=== PATIENT | female | born 1955 | race Caucasian/White ===

== ENCOUNTER 2017-10-17 08:15 | Outpatient (CLI) | payer BC ==
--- NOTE | 2017-10-17 11:35 | CT ---
CTA CHEST: HISTORY: Coronary mapping. Atrial flutter. TECHNIQUE: Contrast enhanced CT chest performed. FINDINGS: No evidence of definite lung parenchymal abnormalities seen. The left main, as well as the coronary arteries, is unremarkable. A prominent coronary sinus is seen. No other significant abnormalities s een. No evidence of pleural or pericardial effusion seen. POS: [facility]
== END 2017-10-17 08:16 | disposition home or self-care (01) ==
LOC: CT 08:15
PROVIDERS: ATTEND Internal Medicine Cardiovascular Disease
DX: I48.91 Unspecified atrial fibrillation (principal)
CPT/HCPCS: 71275; 82565

== ENCOUNTER 2017-11-05 08:35 | Outpatient (CLI) | payer BC ==
[2017-11-05 10:29] LABS: #Eosinphils 0.2 thou/uL (0.0-0.7); #Lymphocytes 2.2 thou/uL (1.20-3.40); #Monocytes 0.4 thou/uL (0.11-0.59); #Neutrophils 3.4 thou/uL (1.40-6.50); %Basophils 0.7 % (0.0-1.0); %Eosinophils 2.8 % (0.0-10.0); %Lymphocytes 34.7 % (21.0-51.0); %Neutrophils 54.8 % (42.0-75.0); Hemoglobin 13.9 g/dL (12.0-16.0); Mean Corpuscular HGB CONC 34.2 g/dL (32.0-36.0); Mean Corpuscular Volume 93.6 fl (81.0-99.0); Mean Platelet Volume 7.6 fL (7.4-10.4); Platelet Count 217 thou/uL (130-400); RBC Distribution Width 11.4 % (11.5-14.5); Red Blood Cell (RBC) Count 4.34 mill/uL (4.20-5.40); White Blood Cell (WBC) Count 6.3 thou/uL (4.8-10.8)
[2017-11-05 10:41] LABS: INR-International Normal Ratio 2.3; PTT 47.7 SEC (22.9-36.1); Prothrombin Time 26.1 SEC (12.0-14.7)
[2017-11-05 11:14] LABS: Anion Gap 7 mmol/L (10-20); BUN (Urea Nitrogen) 17 mg/dL (9.8-20.1); Calc. Creatinine Clearance 0 mL/min (70-130); Calcium 10.2 mg/dL (7.8-10.44); Carbon Dioxide 33 mmol/L (23-31); Chloride 105 mmol/L (98-107); Estimated GFR-MDRD 56; Glucose 117 mg/dL (80-115); Sodium 141 mmol/L (136-145)
--- NOTE | 2017-11-06 08:02 | EKG ---
Test Reason : Blood Pressure : / mmHG Vent. Rate : 052 BPM Atrial Rate : 357 BPM P-R Int : 000 ms QRS Dur : 090 ms QT Int : 396 ms P-R-T Axes : 000 083 077 degrees QTc Int : 368 ms Atrial fibrillation with slow ventricular response Low voltage QRS Abnormal ECG When compared with ECG of 15-JUL-2012 11:33, Atrial fibrillation has replaced Sinus rhythm QT has shortened Confirmed by JIAN WOOD ([id number]) on 11/06/2017 8:01:57 AM Referred By: HEATHER Confirmed By:JIAN WOOD
== END 2017-11-05 08:36 | disposition home or self-care (01) ==
LOC: LABBT 08:35
PROVIDERS: ATTEND Internal Medicine Cardiovascular Disease
DX: Z01.818 Encounter for other preprocedural examination (principal); I48.91 Unspecified atrial fibrillation; R94.31 Abnormal electrocardiogram [ECG] [EKG]
CPT/HCPCS: 80048; 85025; 85610; 85730; 93005; 93010

== ENCOUNTER 2017-11-14 06:01 | Observation (INO) | payer BC ==
[2017-11-05 09:00] VITALS: BMI 24.9
[2017-11-14] MEDS ORDERED: Lidocaine 1% (PF) 30 ML VIAL ONE (06:56)
[2017-11-14] MEDS ORDERED: Heparin 10,000 UNITS/1 ML VIAL ONE (07:03)
[2017-11-14] MEDS ORDERED: Fentanyl 100 MCG/2 ML VIAL ONE ×2 (07:50)
[2017-11-14] MEDS ORDERED: Isoproterenol 0.2 MG/1 ML AMP ONE ×2 (10:01)
[2017-11-14] MEDS ORDERED: Protamine Sulfate 50 MG/5 ML VIAL ONE (10:21)
[2017-11-14] MEDS ORDERED: Ondansetron HCl/PF 4 MG/2 ML Vial IVP PRN ×3 (11:36→12:37)
[2017-11-14] MEDS ORDERED: Non-Formulary Medication 1 EACH PO PRN (11:36)
[2017-11-14] MEDS ORDERED: Promethazine HCl 25 MG/ML VIAL IM/IV PRN ×2 (11:36)
[2017-11-14] MEDS ORDERED: Nitroglycerin 0.4 MG TAB (25 Tab Bottle) SL PRN (12:37)
[2017-11-14] MEDS ORDERED: Acetaminophen 325 MG TAB PO PRN (12:37)
[2017-11-14] MEDS ORDERED: Mag-Al 1200 mg/1200 mg/30 ML UDCUP PO PRN (12:37)
[2017-11-14] MEDS ORDERED: Bisacodyl 5 MG TAB PO PRN (12:37)
[2017-11-14] MEDS ORDERED: traMADol HCl 50 MG TAB PO PRN (12:37)
[2017-11-14] MEDS ORDERED: Bisacodyl 10 MG SUPP PR PRN (12:37)
[2017-11-14] MEDS ORDERED: Silver Sulfadiazine 1% Cream 50 GM JAR TOP PRN (12:37)
[2017-11-14] MEDS ORDERED: Temazepam 15 MG CAP PO PRN (12:37)
[2017-11-14] MEDS ORDERED: diphenhydrAMINE 25 MG CAP PO PRN (12:37)
--- NOTE | 2017-11-14 13:06 | OP ---
DATE OF PROCEDURE: 11/14/2017 PROCEDURE: 1. Comprehensive EP testing with 3D mapping ablation of atrial fibrillation. 2. Transseptal catheterization x2. 3. Intracardiac echocardiography. 4. Vascade collagen closure device placed in the venous access. CLINICAL INDICATION: 1. Atypical flutter and atrial fibrillation. 2. Remote history of typical flutter ablated in the past. OPERATORS TEACHER: Deangelo Watts M.D. ASA CLASSIFICATION: 3. ANESTHESIA: General endotracheal anesthesia per Anesthesiology. ADDITIONAL CARDIAC MEDICATIONS. ____ 10 mcg per minute infusion. Total heparin given 13,000 units. Total protamine given 40 mg. ACUTE COMPLICATIONS: None apparent. METHODS: After informed consent was obtained, the patient was taken to the EP lab in a fasting state . The groins were prepped and draped in usual sterile fashion. Using ultrasound guidance, the right and left femoral veins were accessed and wires were inserted into the central venous system. Becaus e of tortuosity the left iliac fluoroscopy was required to maintain access. An 11 Arabic and 8 Frenc h sheaths were placed in left groin two 8 Arabic sheath placed in right groin. All 8-Arabic sheaths were then replaced by long sheaths for catheter stability. A circular ablation catheter placed in ri t groin advanced over the right atrium. A 3D map was obtained of the right atrium and the coronary sinus. A 10 Arabic echo probe was placed left groin advanced up the right atrium. A 20 pole cathet er placed in left groin advanced into the coronary sinus, the proximal end was in the right atrium. E sophageal temperature probe was placed in the esophagus to the oropharynx. This was colocated with a location sensor to visualize the temperature probe in the 3 mapping system. A 3D map was obtained o f the left atrium and ablation was delivered completely isolating all four pulmonary veins and the po sterior wall of the left atrium. With this, the patient's flutter terminated and the patient was no longer inducible for any sustained arrhythmias, occasional ectopic atrial activity was seen in the CS but nothing sustained warranting ablation. At the conclusion of procedure, catheters were withdrawn , sheaths were pulled. Hemostasis was achieved with a collagen closure device in all four groin acce ss points. RESULTS: 1. Baseline intervals, HV interval 50 milliseconds. The patient was in flutter at 230 milliseconds. This was not typical, pacing within the right atrial isthmus failed to induce any concealed entrain ment. This terminated spontaneously with ablation of the right superior pulmonary vein. 2. Atrial function. Patient has moderate to severe scarring and was in an atypical flutter. This t erminated with ablation of the right superior pulmonary vein as described above. 3. Ablation details a total of 19 minutes 20 seconds of RF were delivered with a [employer] Michelle op en, irrigated noncontact force ablation catheter. IMPRESSION: Successful PVAI with isolation of all 4 pulmonary veins and posterior wall. RECOMMENDATION: Oral anticoagulation and 23-hour observation.
[2017-11-14] MEDS ORDERED: PROPOFOL 200 MG/20 ML VIAL ONE (16:38)
[2017-11-14] MEDS ORDERED: Lidocaine 1% PF 5 ML VIAL ONE (16:38)
[2017-11-14] MEDS ORDERED: Heparin 10,000 UNITS/ 10 ML VIAL ONE (16:38)
[2017-11-14] MEDS ORDERED: Succinylcholine Chloride 20 MG/ML 10 ml SYRINGE FS ONE (16:38)
[2017-11-14] MEDS ORDERED: PHENYLEPHRINE-NS 100 MCG/ML 10 ML SYRINGE ONE (16:38)
[2017-11-14] MEDS ORDERED: Rosuvastatin 20 MG TAB PO SCH ×2 (21:00)
[2017-11-15] MEDS ORDERED: Levothyroxine Sodium 50 MCG TAB PO SCH (06:00)
[2017-11-15] MEDS ORDERED: Rivaroxaban 10 MG TAB PO SCH (09:00)
[2017-11-15] MEDS ORDERED: Calcium Carbonate 500 MG ChewTAB PO SCH (09:00)
[2017-11-15] MEDS ORDERED: Multivit, Therapeutic 1 TAB PO SCH (09:00)
[2017-11-15 11:44] VITALS: BP 115/57; TEMP 98.1
--- NOTE | 2017-11-16 09:04 | DIS ---
DATE OF ADMISSION: 11/14/2017 DATE OF DISCHARGE: 11/15/2017 This is Bailee Zavala NP-C dictating for Michael Curtis M.D ATTENDING PHYSICIAN: Dr. Michael Curtis. OPERATING PHYSICIAN: Dr. Deangelo Watts. CONDITION AT DISCHARGE: Stable. FINAL DIAGNOSES: Atypical flutter and atrial fibrillation, status post PVAI. PROCEDURES: Comprehensive EP testing with 3D mapping ablation of atrial fibrillation and atypical at rial flutter, VASCADE collagen closure device placed at bilateral venous access sites. HISTORY OF PRESENT ILLNESS: Ms. Esqueda is a very pleasant 62-year-old woman with a history of previ ously persisting atrial fibrillation as well as atypical atrial flutter. She has a remote history of typical atrial flutter and underwent CTI ablation in the past. During this hospitalization, she und erwent successful PVAI with isolation of all four pulmonary veins as well as a posterior wall. The p atient was noted to have moderate to severe scarring in her left atrium. She received a total of 19 minutes 20 seconds of RF energy lesions delivered. The femoral vein access sites were closed with VA SCADE collagen closure devices. She has done well overnight and been stable in her recovery. She ortiz s been up ambulating easily. She only reports mild discomfort at her groin access sites and they are stable without hematoma or draining. She is tolerating p.o. intake and voiding normally. Vital sig ns have been stable and she feels ready for discharge. DISCHARGE MEDICATIONS: She is to resume her home medications upon discharge of Tums as needed, levot hyroxine 50 mcg daily, multivitamin daily, Xarelto 20 mg daily, rosuvastatin 20 mg at bedtime. New p rescriptions of Carafate 1gram p.o. q.i.d. x2 weeks, potassium chloride 20 mEq daily if taking Lasix, Lasix 40 mg daily as needed for shortness of breath or swelling of the extremities and Protonix 40 m g daily x1 month. DISCHARGE INSTRUCTIONS: No soaking baths or lifting greater than 25 pounds for the next 7 days and t hen she is to resume normal activity without restriction gradually and as tolerated. She should foll ow a heart healthy diet and send event monitor transmissions at least weekly. She is to follow up in clinic in 4-6 weeks or sooner if needed for any recurrence or concerns she may have. The patient is stable and ready for discharge.
--- NOTE | 2017-11-17 08:48 | EKG ---
Test Reason : POST EP STUDY/ABLATI Blood Pressure : / mmHG Vent. Rate : 078 BPM Atrial Rate : 078 BPM P-R Int : 306 ms QRS Dur : 096 ms QT Int : 422 ms P-R-T Axes : 058 086 -38 degrees QTc Int : 481 ms Sinus rhythm with 1st degree A-V block Nonspecific T wave abnormality Prolonged QT Abnormal ECG Confirmed by ZAHIDA PINEDA, LEONELA ([id number]) on 11/17/2017 8:48:14 AM Referred By: HEATHER Confirmed By:LEONELA TEAGUE MD
--- NOTE | 2017-11-17 08:52 | EKG ---
Test Reason : Blood Pressure : / mmHG Vent. Rate : 078 BPM Atrial Rate : 078 BPM P-R Int : 332 ms QRS Dur : 092 ms QT Int : 368 ms P-R-T Axes : 075 070 011 degrees QTc Int : 419 ms Sinus rhythm with 1st degree A-V block Otherwise normal ECG When compared with ECG of 14-NOV-2017 11:09, (Unconfirmed) QT has shortened Confirmed by ZAHIDA PINEDA, LEONELA ([id number]) on 11/17/2017 8:52:15 AM Referred By: HEATHER Confirmed By:LEONELA TEAGUE MD
== END 2017-11-15 15:30 | disposition home or self-care (01) ==
LOC: SDC 06:01 → 2SW 11:52
PROVIDERS: ADMIT Internal Medicine Cardiovascular Disease; ATTEND Internal Medicine Cardiovascular Disease
PROC: 4A023FZ Measurement of Cardiac Rhythm, Percutaneous Approach (ICD-10-PCS; principal; 2017-11-15)
PROC: 02K83ZZ Map Conduction Mechanism, Percutaneous Approach (ICD-10-PCS; 2017-11-15)
DX: I48.4 Atypical atrial flutter (principal); I48.1 Persistent atrial fibrillation; I10 Essential (primary) hypertension; K21.9 Gastro-esophageal reflux disease without esophagitis; Z79.01 Long term (current) use of anticoagulants; Z79.899 Other long term (current) drug therapy; Z98.51 Tubal ligation status; Z90.49 Acquired absence of other specified parts of digestive tract; Z90.89 Acquired absence of other organs; Z98.890 Other specified postprocedural states
CPT/HCPCS: 76942; 85347; 93005; 93010; 93613; 93623; 93656; 93662; C1731; C1732; C1759; C1769; C2630; G0378; J1644; J2001; J2704; J2720; J3010

== ENCOUNTER 2018-03-30 17:55 | Emergency (ER) | payer BC | END 2018-03-30 18:50 | disposition home or self-care (01) | LOC: ERS 17:55 | DX: Z76.0 Encounter for issue of repeat prescription (principal); I48.91 Unspecified atrial fibrillation; Z79.01 Long term (current) use of anticoagulants; Z79.899 Other long term (current) drug therapy | CPT/HCPCS: 99281 ==

== ENCOUNTER 2018-04-30 09:23 | Outpatient (CLI) | payer BC ==
[2018-04-30 10:43] LABS: Hemoglobin 13.9 g/dL (12.0-16.0); Mean Corpuscular HGB CONC 33.6 g/dL (32.0-36.0); Mean Corpuscular Hemoglobin 30.7 pg (27.0-31.0); Mean Corpuscular Volume 91.2 fL (78.0-98.0); Mean Platelet Volume 7.3 fL (7.4-10.4); Platelet Count 234 thou/uL (130-400); RBC Distribution Width 11.7 % (11.5-14.5); Red Blood Cell (RBC) Count 4.54 mill/uL (4.20-5.40); White Blood Cell (WBC) Count 6.9 thou/uL (4.8-10.8)
[2018-04-30 10:52] LABS: INR-International Normal Ratio 1.7; PTT 40.8 SEC (22.9-36.1); Prothrombin Time 20.3 SEC (12.0-14.7)
[2018-04-30 11:23] LABS: Anion Gap 11 mmol/L (10-20); BUN (Urea Nitrogen) 16 mg/dL (9.8-20.1); Calc. Creatinine Clearance 0 mL/min (70-130); Carbon Dioxide 26 mmol/L (23-31); Chloride 107 mmol/L (98-107); Estimated GFR-MDRD 58; Glucose 99 mg/dL (80-115); Potassium 3.8 mmol/L (3.5-5.1); Sodium 140 mmol/L (136-145)
== END 2018-04-30 09:24 | disposition home or self-care (01) ==
LOC: LABBT 09:23
PROVIDERS: ATTEND Internal Medicine Cardiovascular Disease
DX: Z01.818 Encounter for other preprocedural examination (principal); I48.91 Unspecified atrial fibrillation
CPT/HCPCS: 80048; 85027; 85610; 85730; 93005; 93010

== ENCOUNTER → 2018-05-02 | Day surgery (SDC) | payer BC ==
[2018-04-30 09:41] VITALS: BMI 25.9
[~2018-05-02] MED LIST: PROPOFOL 200 MG/20 ML VIAL ONE; PROPOFOL 40 ML ONE
--- NOTE | 2018-05-02 19:02 | OP ---
DATE OF PROCEDURE: 05/02/2018 PROCEDURE: Cardioversion. REFERRING PHYSICIAN: Abdullahi Black M.D. REASON FOR PROCEDURE. Ms. Esqueda is a 63-year-old woman who underwent pulmonary venous isolation pr ocedure and CT ablation in 11/14/2017. She has maintained sinus rhythm, but now came with atypical a trial flutter to our office. It was symptomatic. She has been anticoagulated well with continued Xa relto medication. She also has [id number] MR by . Our plan is to proceed with cardiovers ion. PROCEDURE IN DETAIL: The patient received propofol by Anesthesia specialist. After adequate level o f sedation achieved, a synchronized 100-joule shock promptly converted the patient back to sinus rhyt hm. CONCLUSION: Successful cardioversion. PLAN: Continue Xarelto and monitor for recurrent atrial arrhythmias.
--- NOTE | 2018-05-04 21:17 | EKG ---
Test Reason : PREOP Blood Pressure : / mmHG Vent. Rate : 088 BPM Atrial Rate : 092 BPM P-R Int : 000 ms QRS Dur : 090 ms QT Int : 370 ms P-R-T Axes : 000 084 012 degrees QTc Int : 447 ms Atrial fibrillation Nonspecific ST abnormality , probably digitalis effect Abnormal ECG When compared with ECG of 30-APR-2018 10:00, (Unconfirmed) Previous ECG has undetermined rhythm, needs review Confirmed by Patricia WATERS ([id number]) on 05/04/2018 9:17:28 PM Referred By: [facility] Confirmed By:Patricia WATERS
--- NOTE | 2018-05-04 21:18 | EKG ---
Test Reason : POST CARDIOVERSION Blood Pressure : / mmHG Vent. Rate : 070 BPM Atrial Rate : 070 BPM P-R Int : 262 ms QRS Dur : 092 ms QT Int : 388 ms P-R-T Axes : 068 075 -04 degrees QTc Int : 419 ms Sinus rhythm with 1st degree A-V block Nonspecific ST and T wave abnormality Abnormal ECG When compared with ECG of 02-MAY-2018 13:40, (Unconfirmed) Sinus rhythm has replaced Atrial fibrillation Confirmed by Patricia WATERS ([id number]) on 05/04/2018 9:18:11 PM Referred By: [facility]ER[facility] Confirmed By:Patricia WATERS
== END ==
LOC: CCL 11:02
PROVIDERS: ATTEND Internal Medicine Cardiovascular Disease
PROC: 5A2204Z Restoration of Cardiac Rhythm, Single (ICD-10-PCS; principal; 2018-05-02)
DX: I48.4 Atypical atrial flutter (principal); I48.1 Persistent atrial fibrillation; I10 Essential (primary) hypertension; E78.5 Hyperlipidemia, unspecified; I34.0 Nonrheumatic mitral (valve) insufficiency; Z79.01 Long term (current) use of anticoagulants; Z79.899 Other long term (current) drug therapy
CPT/HCPCS: 92960; 93005; 93010; J2704

== ENCOUNTER 2018-07-08 12:16 | Outpatient (CLI) | payer BC ==
[2018-07-08 13:32] LABS: Hemoglobin 13.3 g/dL (12.0-16.0); Mean Corpuscular HGB CONC 32.6 g/dL (32.0-36.0); Mean Corpuscular Hemoglobin 29.9 pg (27.0-31.0); Mean Corpuscular Volume 91.8 fL (78.0-98.0); Mean Platelet Volume 7.7 fL (7.4-10.4); Platelet Count 231 thou/uL (130-400); RBC Distribution Width 11.6 % (11.5-14.5); Red Blood Cell (RBC) Count 4.46 mill/uL (4.20-5.40); White Blood Cell (WBC) Count 7.6 thou/uL (4.8-10.8)
[2018-07-08 13:35] LABS: Anion Gap 10 mmol/L (10-20); BUN (Urea Nitrogen) 17 mg/dL (9.8-20.1); Calc. Creatinine Clearance 0 mL/min (70-130); Calcium 9.9 mg/dL (7.8-10.44); Carbon Dioxide 28 mmol/L (23-31); Chloride 108 mmol/L (98-107); Estimated GFR-MDRD 60; Glucose 91 mg/dL (80-115); Potassium 4.2 mmol/L (3.5-5.1); Sodium 142 mmol/L (136-145)
[2018-07-08 13:37] LABS: INR-International Normal Ratio 1.7; PTT 38.5 SEC (22.9-36.1); Prothrombin Time 19.6 SEC (12.0-14.7)
== END 2018-07-08 12:17 | disposition home or self-care (01) ==
LOC: LABBT 12:16
PROVIDERS: ATTEND Specialist
DX: Z01.818 Encounter for other preprocedural examination (principal); I48.91 Unspecified atrial fibrillation
CPT/HCPCS: 80048; 85027; 85610; 85730; 93005; 93010

== ENCOUNTER 2018-07-10 11:54 | Observation (INO) | payer BC ==
[2018-07-10] MEDS ORDERED: Heparin 10,000 UNITS/1 ML VIAL ONE (12:19)
[2018-07-10] MEDS ORDERED: PHENYLEPHRINE-NS 100 MCG/ML 10 ML SYRINGE ONE (13:14)
[2018-07-10] MEDS ORDERED: PROPOFOL 200 MG/20 ML VIAL ONE (13:14)
[2018-07-10] MEDS ORDERED: Ketorolac Tromethamine 30 MG/ML VIAL ONE (13:14)
[2018-07-10] MEDS ORDERED: Glycopyrrolate 0.2 MG/ML 5 ML SYRINGE ONE (13:14)
[2018-07-10] MEDS ORDERED: Ondansetron PF 4 MG/2 ML Vial ONE (13:14)
[2018-07-10] MEDS ORDERED: Lidocaine 1% PF 5 ML VIAL ONE (13:14)
[2018-07-10] MEDS ORDERED: Dexamethasone 20 MG/5 ML VIAL ONE (13:14)
[2018-07-10] MEDS ORDERED: Protamine Sulfate 50 MG/5 ML VIAL ONE (14:52)
[2018-07-10] MEDS ORDERED: Promethazine HCl 25 MG/ML VIAL SLOW IVP PRN (15:29)
[2018-07-10] MEDS ORDERED: Promethazine HCl 25 MG/ML VIAL IM PRN (15:29)
[2018-07-10] MEDS ORDERED: Ondansetron HCl/PF 4 MG/2 ML Vial IVP PRN (15:29)
[2018-07-10 17:18] VITALS: BMI 25.3
[2018-07-10] MEDS ORDERED: Acetaminophen/Codeine 30-300mg Tablet PO PRN ×2 (17:30)
[2018-07-10] MEDS ORDERED: Rosuvastatin 20 MG TAB PO SCH (21:00)
[2018-07-11] MEDS ORDERED: Levothyroxine Sodium 50 MCG TAB PO SCH (06:00)
[2018-07-11] MEDS ORDERED: Calcium Carbonate 500 MG TAB PO SCH (09:00)
[2018-07-11] MEDS ORDERED: Multivit, Chewable SF 1 TAB PO SCH (09:00)
--- NOTE | 2018-07-11 09:00 | OP ---
DATE OF PROCEDURE: 07/10/2018 PROCEDURE PERFORMED: Radiofrequency ablation. This is an atrial fibrillation ablation. PREOPERATIVE DIAGNOSES: Atrial fibrillation and atypical flutter. PROCEDURE DETAILS: The patient came to the EP lab in the postobstructive state. Informed consent was obtained. A time-out was obtained. The patient was sedated by member of the anesthesia staff. Once the patient was adequately sedated, the right and left femoral regions as well as the neck region were prepped and draped in the usual sterile fashion. Using a modified Seldinger technique and with ultrasound guidance access, access was obtained x2 in the right femoral vein, x1 in the left femoral vein, and also in the right jugular vein. Two 8-Burkinan sheaths were placed in the right femoral vein. A 10-Burkinan sheath was placed in the left femoral vein and a 7-Burkinan sheath was placed in the IJ. Through the internal jugular vein, a 20-pole duodecapolar catheter was advanced and placed with last distal 10 poles in the coronary sinus for left atrial pacing and recording. An intracardiac echo catheter was advanced from the left femoral vein into the right atrium for intraprocedural guidance. Transseptal was obtained x2 under ultrasound guidance. A 10-pole 20 mm circular mapping catheter was placed and an electroanatomical map was created with voltage and timing of the atrial flutter. The flutter cycle length was approximately 269 milliseconds initially. An ablation catheter was advanced and radiofrequency ablation was delivered. The left pulmonary vein needed some additional ablation as did the right inferior pulmonary vein. Radiofrequency ablation lesions were delivered and the flutter changed the cycle length at the roof and ultimately terminated outside of the left atrial appendage. Ablation in the floor of the left atrium posteriorly resulted in an appendage isolation. Isoproterenol was given and no additional triggers were found. It was noted after termination of the atrial flutter that the appendage was firing and initiating frequent ectopic beats. Vascades were placed in the groin for venous stasis and the jugular was maintained with manual pressure. The patient tolerated the procedure well and was discharged to the EP lab in stable condition. CONCLUSIONS: 1. Successful ablation of atypical atrial flutter. 2. Successful re-isolation of pulmonary veins, posterior wall. 3. Successful ablation of coronary sinus endocardially as well as isolation of left atrial appendage. RECOMMENDATIONS: The patient will not discontinue anticoagulant therapy. The patient will follow up with Electrophysiology in about 6 to 8 weeks. Job ID: [id number]
[2018-07-11 11:58] VITALS: BP 108/63; TEMP 98.8
[2018-07-11] MEDS ORDERED: Rivaroxaban 10 MG TAB PO SCH (17:00)
--- NOTE | 2018-07-12 05:53 | DIS ---
DATE OF ADMISSION: 07/10/2018 DATE OF DISCHARGE: 07/11/2018 ADMISSION DIAGNOSES: 1. Recurrent atrial fibrillation. 2. Prior history of pulmonary venous isolation procedure. 3. Status post redo pulmonary venous isolation procedure on 07/10/[address] Patiño. During the procedure, isolation of inferior left pulmonary vein was performed. There was an atrial flutter noted at cycle length of 269 milliseconds, ultimately terminated the flutter at the left atrial appendage area. Ablation of floor of left atrium closure was performed. HOSPITAL COURSE: The patient remained stable overnight. Rhythm in sinus rhythm. No 2nd arrhythmia is noted. No dizziness or loss of consciousness. No stroke-like symptoms. No bleeding issues. Groin sites are healing adequately. OBJECTIVE DATA: VITAL SIGNS: Blood pressure is 108/63, heart rate 74, respirations 16, temperature 98.8 degrees Fahrenheit. GENERAL: Reveals an alert and oriented woman, in no apparent distress. NECK: Supple. Jugular veins are not distended. CHEST: Coarse without crackles. HEART: Heart sounds are regular rate and rhythm. No murmur or gallop. ABDOMEN: Benign. Bowel sounds positive. EXTREMITIES: Lower extremities without edema, clubbing, or cyanosis. DATABASE: The telemetry strips reveal sinus rhythm. No recurrent atrial fibrillation noted overnight. The groin sites without hematoma. PLAN: Discharge home on prior medications including multivitamin, levothyroxine, rivaroxaban 20 mg daily, and Crestor. Also, the patient was given Carafate 1 g q.6 hours for next 14 days, Protonix 40 mg daily, Lasix 40 mg daily, and potassium 10 mEq daily was given as needed if the fluid overload occurs. The patient was given instructions and follow up in 6 weeks Job ID: [id number]
== END 2018-07-11 15:35 | disposition home or self-care (01) ==
LOC: CCL 11:54 → 2SW 15:00
PROVIDERS: ADMIT Specialist; ATTEND Specialist
PROC: 02583ZZ Destruction of Conduction Mechanism, Percutaneous Approach (ICD-10-PCS; principal; 2018-07-10)
PROC: 02K83ZZ Map Conduction Mechanism, Percutaneous Approach (ICD-10-PCS; 2018-07-10)
PROC: 4A023FZ Measurement of Cardiac Rhythm, Percutaneous Approach (ICD-10-PCS; 2018-07-10)
PROC: 4A0234Z Measurement of Cardiac Electrical Activity, Percutaneous Approach (ICD-10-PCS; 2018-07-10)
DX: I48.1 Persistent atrial fibrillation (principal); I48.4 Atypical atrial flutter; I34.0 Nonrheumatic mitral (valve) insufficiency; I10 Essential (primary) hypertension; Z79.01 Long term (current) use of anticoagulants; Z79.899 Other long term (current) drug therapy
CPT/HCPCS: 76942; 90471; 90686; 93005; 93010; 93613; 93623; 93656; 93662; C1759; C1769; G0008; G0378; J1100; J1644; J1885; J2001; J2405; J2704; J2720

== ENCOUNTER 2020-07-20 18:02 | Emergency (ER) | payer BC ==
--- NOTE | 2020-07-20 19:04 | CT ---
EXAM: CT brain without contrast HISTORY: Hit head on metal gate. Head trauma. COMPARISON: None TECHNIQUE: Multiple contiguous axial images were obtained and a CT of the brain without contrast. FINDINGS: There is hypodensity in the right MCA distribution consistent with a prior right MCA distri bution infarction. There is also hypodensity/encephalomalacia in the right cerebellar hemisphere. There is no evidence of hydrocephalus, intracranial hemorrhage, or extra-axial fluid collection. Mild left forehead soft tissue swelling is seen. The underlying calvarium is unremarkable. The visual ized paranasal sinuses and mastoid air cells are well aerated. IMPRESSION: 1. No evidence of acute intracranial abnormality 2. Remote right MCA distribution and cerebellar infarctions.
--- NOTE | 2020-07-20 19:18 | CT ---
CT CERVICAL SPINE: 07/20/20 PROVIDED CLINICAL HISTORY: Neck pain. There is no evidence for fracture or traumatic subluxation. Cervical degenerative changes are seen. N o prevertebral soft tissue swelling apparent. The visualized lung apices appear clear. IMPRESSION: No evidence for fracture or traumatic subluxation. POS: [facility]
[2020-07-20] MEDS ORDERED: Boostrix 0.5 ML (Tdap) VIAL ONE (21:43)
[2020-07-20 22:21] LABS: INR-International Normal Ratio 1.1; Prothrombin Time 14.4 sec (12.0-14.7)
[2020-07-20 22:22] LABS: PTT 31.5 sec (22.9-36.1)
== END 2020-07-20 23:05 | disposition home or self-care (01) ==
LOC: ERS 18:02
DX: S06.0X0A Concussion without loss of consciousness, initial encounter (principal); E78.00 Pure hypercholesterolemia, unspecified; I48.91 Unspecified atrial fibrillation; I48.92 Unspecified atrial flutter; W22.8XXA Striking against or struck by other objects, initial encounter
CPT/HCPCS: 36415; 70450; 72125; 85610; 85730; 90471; 90715